=== PATIENT | female | born 1965 | race Caucasian/White ===

== ENCOUNTER 2020-08-22 19:52 | Observation (INO) | payer OTHER, SELFPAY ==
[2020-08-22 22:35] VITALS: BMI 33.7
[2020-08-22] MEDS ORDERED: Nitroglycerin 0.4 MG TAB (25 Tab Bottle) SL PRN (23:48)
[2020-08-22] MEDS ORDERED: Acetaminophen 650 MG Suppository PR PRN (23:50)
[2020-08-22] MEDS ORDERED: Acetaminophen 325 MG TAB PO PRN (23:50)
[2020-08-23] MEDS: Sodium Chloride 0.9% 1,000 ML IV SCH ×2 (00:34→15:00)
[2020-08-23 00:38] LABS: Magnesium 1.9 mg/dL (1.6-2.6)
[2020-08-23 03:15] LABS: #Basophils 0.1 thou/uL (0.0-0.2); #Eosinphils 0.3 thou/uL (0.0-0.7); #Lymphocytes 3.1 thou/uL (1.20-3.40); #Monocytes 0.5 thou/uL (0.11-0.59); #Neutrophils 3.8 thou/uL (1.40-6.50); %Eosinophils 3.7 % (0.0-10.0); %Lymphocytes 39.9 % (21.0-51.0); %Monocytes 6.6 % (0.0-10.0); %Neutrophils 48.8 % (42.0-75.0); Hemoglobin 14.2 g/dL (12.0-16.0); Mean Corpuscular HGB CONC 34.4 g/dL (32.0-36.0); Mean Corpuscular Hemoglobin 31.5 pg (27.0-31.0); Mean Corpuscular Volume 91.5 fL (78.0-98.0); Mean Platelet Volume 9.7 fL (7.4-10.4); Platelet Count 187 thou/uL (130-400); RBC Distribution Width 12.7 % (11.5-14.5); Red Blood Cell (RBC) Count 4.51 mill/uL (4.20-5.40); White Blood Cell (WBC) Count 7.8 thou/uL (4.8-10.8)
[2020-08-23 03:40] LABS: Anion Gap 14 mmol/L (10-20); BUN (Urea Nitrogen) 12 mg/dL (9.8-20.1); Calc. Creatinine Clearance 119 mL/min (70-130); Carbon Dioxide 25 mmol/L (22-29); Chloride 101 mmol/L (98-107); Estimated GFR-MDRD 72; Potassium 3.5 mmol/L (3.5-5.1); Sodium 136 mmol/L (136-145)
[2020-08-23 03:41] LABS: Calcium 8.7 mg/dL (7.8-10.44); Glucose 155 mg/dL (70-105)
--- NOTE | 2020-08-23 03:53 | PDOC.HHP ---
Hospitalist HPI - History of Present Illness History of Present Illness: Admission 08/22/2020 Time of assessment 2300 CHIEF COMPLAINT: Chest pain HPI: Ms. Lopez is a 54-year-old woman who presented to the emergency department today with complaints of intermittent chest pain that started at around noon. The patient states that the pain came on while she was resting. States it was on the left side of her chest described as a stabbing 8 out of 10 pain that lasted a few seconds and recurred every 15 minutes for several hours. When the pain recurred she also experienced pain in her feet left hand with a tingling sensation. She denies experiencing pain like this in the past. Denies any associated nausea vomiting or diaphoresis. Denies having any difficulty breathing but states that generally she has noted shortness of breath on exertion for the last several months. Reports having a dry cough but denies any hemoptysis. No lower extremity swelling or calf tenderness. Denies any recent long car rides or flights. Reports having a stress test approximately 20 years ago after having work-up for syncope. She is currently pain-free and without any complaints aside from fatigue. ROS: Patient denies any headaches or dizziness. No lightheadedness. No abdominal pain or cramping. No bowel changes or urinary symptoms. She does report having issues with fatigue. States she works long hours and is under a significant amount of stress and does not feel like she is ever fully rested. States she tends to "crash" at the same time every day around 2 to 3 PM. ED COURSE: Initially seen at [facility] and then recommended direct admission here for ACS rule out. In the emergency department she underwent an EKG that showed a normal sinus rhythm with a heart rate of 82. She was noted to have inverted T waves affecting leads III. No ST changes. Chest x-ray done showed no evidence of acute intrathoracic abnormalities. Labs done showed a normal full blood count. BUN 12 creatinine 0.83 GFR 72. Troponin negative x2. She was given Nitro-Bid 0.5 inch and aspirin 162 mg p.o. She had taken aspirin earlier in the day. PAST MEDICAL HISTORY: Hypertension Anxiety History of fibrocystic breasts PAST SURGICAL HISTORY: Hysterectomy SOCIAL HISTORY: She denies any tobacco use alcohol consumption or illicit drug use. FAMILY HISTORY: Patient is adopted and does not know much about her parents me dical problems. She states hypertension does run in the family. ALLERGIES: No known drug allergies. CURRENT MEDICATIONS: Hydrochlorothiazide Metoprolol succinate VS: Temp 99, HR 76, RR 12, sats 94% on room air, BP 105/55. Hospitalist ROS - Medication Medications: Active Medications Generic Name Dose Route Start Last Admin Trade Name Freq PRN Reason Stop Dose Admin Sodium Chloride 1,000 mls @ 65 mls/hr 08/22/20 23:45 08/23/20 00:34 Normal Saline 0.9% IV 1,000 mls .[id number] MJ Administration Influenza Virus Vaccine Quadrival 60 mcg 08/23/20 09:00 08/23/20 00:23 Flu Vacc [id number](6mos Up)/Pf 60 Mcg/0.5 Ml Syringe IM 08/23/20 09:01 Not Given .ONCE ONE - Exam General Appearance: NAD, awake alert Eye: PERRL, anicteric sclera ENT: normocephalic atraumatic, no oropharyngeal lesions, moist mucosa Neck: supple, symmetric, no lymphadenopathy Heart: RRR, no murmur, normal peripheral pulses Heart - other findings: no reproducible pain on exam Respiratory: CTAB, no wheezes, no rales, no ronchi, normal chest expansion Gastrointestinal: soft, non-tender, non-distended, normal bowel sounds, no guarding, no rigidity Extremities: no edema Skin: normal turgor, no lesions, no rashes Neurological: cranial nerve grossly intact, normal sensation to touch, no weakness Musculoskeletal: normal tone, normal strength, no muscle wasting Psychiatric: normal affect, normal behavior, A&O x 3 Hospitalist Results - Labs Result Diagrams: 08/23/20 02:52 08/23/20 02:52 Lab results: WBC 7.8 thou/uL (4.8-10.8) 08/23/20 02:52 Hgb 14.2 g/dL (12.0-16.0) 08/23/20 02:52 Hct 41.2 % (36.0-47.0) 08/23/20 02:52 MCV 91.5 fL (78.0-98.0) 08/23/20 02:52 Plt Count 187 thou/uL (130-400) 08/23/20 02:52 Neutrophils % 48.8 % (42.0-75.0) 08/23/20 02:52 Sodium 136 mmol/L (136-145) 08/23/20 02:52 Potassium 3.5 mmol/L (3.5-5.1) 08/23/20 02:52 Chloride 101 mmol/L (98-107) 08/23/20 02:52 Carbon Dioxide 25 mmol/L (22-29) 08/23/20 02:52 BUN 12 mg/dL (9.8-20.1) 08/23/20 02:52 Creatinine 0.83 mg/dL (0.6-1.1) 08/23/20 02:52 Glucose 155 mg/dL (70-105) H 08/23/20 02:52 Calcium 8.7 mg/dL (7.8-10.44) 08/23/20 02:52 Troponin I 0.015 ng/mL (< 0.028) 08/23/20 02:52 Lipase 35 U/L (8-78) 08/23/20 00:12 Hospitalist H&P A/P - Problem (1) Chest pain Code(s): R07.9 - CHEST PAIN, UNSPECIFIED Status: Acute Assessment and Plan: Currently pain free. Continue aspirin and nitro. Check lipid panel with AM labs. Continue cardiac monitoring. Stress test ordered, to be done if troponins remain negative. D-Dimer and Mg+ added on. (2) Fatigue Code(s): R53.83 - OTHER FATIGUE Status: Chronic Assessment and Plan: Will obtain UA/UCx to rule out underlying UTI. Check TSH. (3) Shortness of breath on exertion Code(s): R06.02 - SHORTNESS OF BREATH Status: Chronic Assessment and Plan: Obtain Echo. CXR unremarkable. If D-dimer elevated, obtain CTA Chest (4) Hypertension Code(s): I10 - ESSENTIAL (PRIMARY) HYPERTENSION Status: Chronic Assessment and Plan: Resume home meds once verified. Monitor BP. (5) Anxiety Code(s): F41.9 - ANXIETY DISORDER, UNSPECIFIED Status: Chronic - Plan Plan: GI Prophylaxis with Famotidine. CODE STATUS FULL.
[2020-08-23 08:01] LABS: Cardiac Risk 4.9 (Less than 4.5)
[2020-08-23] MEDS ORDERED: Aspirin 81 mg Enteric Coated Tablet PO SCH (09:00)
[2020-08-23] MEDS ORDERED: FLU VACC QS2020-21(6MOS UP)/PF 60 MCG/0.5 ML SYRINGE IM ONE (09:00)
[2020-08-23] MEDS ORDERED: Famotidine 20 MG TAB PO SCH (09:00)
[2020-08-23 12:20] VITALS: TEMP 97.6
--- NOTE | 2020-08-23 12:33 | NM ---
Radionucleotide stress and rest myocardial perfusion scan with CT attenuation correction and SPECT im aging Left ventricular wall motion evaluation and ejection fraction HISTORY: Chest pain. FINDINGS: Allen protocol. Total test time 6:24. There is homogeneous uptake of radiotracer throughout the left ventricular myocardium. No focal perfu santiago defect or reversibility. QGS analysis of gated SPECT images shows no focal wall motion abnormalities. TID 0.65. LHR 36%. Left ventricular ejection fraction calculated at 76%. IMPRESSION : No evidence of ischemia. Normal LVEF.
[2020-08-23] MEDS ORDERED: Regadenoson 0.4 MG/5 ML SYRINGE ONE (13:17)
[2020-08-23 16:05] VITALS: BP 103/61
[2020-08-24 11:55] LABS: SARS-CoV-2 MS2 Positive; SARS-CoV-2 N Gene Negative; SARS-CoV-2 S Gene Negative; SARS-CoV-2 by NAA Not Detected (NotDetected); SARS-CoV-2 orf1ab Negative
--- NOTE | 2020-08-24 13:36 | DIS ---
DATE OF ADMISSION: 08/22/2020 DATE OF DISCHARGE: 08/23/2020 DISCHARGE DISPOSITION: Home. PRIMARY DISCHARGE DIAGNOSIS: Chest pain, which is noncardiac. SECONDARY DISCHARGE DIAGNOSES: Hypertension, anxiety disorder, obesity with BMI of 33. PROCEDURES DONE DURING HOSPITALIZATION: Nuclear stress test done showed no sign of reversible ischemia. Ejection fraction was 76%. Wall motion was normal. TID 0.65. H and H 14 and 41, platelet count 187. BUN 12, creatinine 0.8. Total cholesterol 196, triglycerides 212, LDL 114, HDL 40. COVID-19 PCR was not detected on 08/23/2020. Chest x-ray done on the day of admission showed no acute cardiopulmonary process. DISCHARGE MEDICATIONS: The patient to continue, 1. Hydrochlorothiazide 25 mg p.o. q.a.m. 2. Metoprolol succinate extended release 50 mg daily. 3. Protonix 40 mg daily. 4. Aspirin 81 mg daily. 5. Naprosyn p.r.n. ALLERGIES: NO KNOWN DRUG ALLERGIES. DISCHARGE PLAN: The patient to follow up with her primary care physician, Dr. Comfort Holloway in 1 week. BRIEF COURSE DURING HOSPITALIZATION: The patient initially came in with complaints of chest pain. In view of risk factors, the patient was placed under observation on telemetry. She has had ACS evidence based protocol followed. Three sets of troponin done were negative. Nuclear stress test done showed no reversible ischemia. Her chest pain completely resolved during her brief stay here. The patient is advised to follow a heart healthy diet and regular exercise. She needs to follow up with her primary care physician in 1 week. Please note, I have seen and examined the patient on the day of discharge. Job ID: [id number]
== END 2020-08-23 16:52 | disposition home or self-care (01) ==
LOC: 2SW 19:52
PROVIDERS: ADMIT Internal Medicine; ATTEND Internal Medicine
DX: R07.89 Other chest pain (principal); R53.83 Other fatigue; R06.02 Shortness of breath; I10 Essential (primary) hypertension; F41.9 Anxiety disorder, unspecified; E66.9 Obesity, unspecified; Z68.33 Body mass index [BMI] 33.0-33.9, adult; Z79.82 Long term (current) use of aspirin; Z79.899 Other long term (current) drug therapy; Z20.828 Contact with and (suspected) exposure to other viral communicable diseases
CPT/HCPCS: 36415; 78452; 80048; 80061; 83690; 83735; 84443; 85025; 85379; 87635; 93017; 96360; 96361; A9500; G0378; J2785; U0003